=== PATIENT | female | born 1985 | race Caucasian/White ===

== ENCOUNTER 2017-03-17 11:40 | Emergency (ER) | payer MEDICAID, OTHER ==
[~2017-03-17] VITALS: Ht 162.6 cm; Wt 53.5 kg
[2017-03-17 11:46] VITALS: BP 101/73
[2017-03-17] MEDS ORDERED: AMOX/CLAVULANATE 875 MG TABLET PO ONE (12:00)
[2017-03-17] MEDS ORDERED: AMOX/CLAVULANATE 250 MG TABLET ONE (12:19)
--- NOTE | 2017-03-17 12:20 | NUR ---
BONNIE BELTRAN AT BS. MEDICATED ORDERED.
== END 2017-03-17 12:40 | disposition home or self-care (01) ==
LOC: ER 11:42
DX: S11.95XA Open bite of unspecified part of neck, initial encounter (principal); Z88.2 Allergy status to sulfonamides; W54.0XXA Bitten by dog, initial encounter; Y93.89 Activity, other specified; Y92.89 Other specified places as the place of occurrence of the external cause; Y99.9 Unspecified external cause status
CPT/HCPCS: 93880; 99284; A4606; Z7610